=== PATIENT | female | born 1935 | race Hispanic/Latino ===

== ENCOUNTER 2019-07-21 06:24 | Day surgery (SDC) | payer MEDICARE ==
[2019-07-21] MEDS: SODIUM CHLORIDE 0.9% 500 ML 500 ML IV SCH ×2 (07:05→08:30)
[2019-07-21 07:14] LABS: Basophils # (Auto) 0.1 K/mm3 (0.0-0.1); Basophils % (Auto) 0.8 % (0.0-1.8); Eosinophils # (Auto) 0.1 K/mm3 (0.0-0.4); Eosinophils % (Auto) 1.5 % (0.0-4.3); Hematocrit 41.1 % (30.3-42.9); Hemoglobin 13.5 gm/dl (10.1-14.3); Lymphocytes # (Auto) 3.5 K/mm3 (1.2-5.4); Lymphocytes % (Auto) 39.5 % (13.4-35.0); Mean Corpuscular HGB Conc 33 % (30-34); Mean Corpuscular Volume 94 fl (79-97); Monocytes # (Auto) 0.7 K/mm3 (0.0-0.8); Monocytes % (Auto) 7.5 % (0.0-7.3); Platelet Count 266 K/mm3 (140-440); Red Blood Count 4.38 M/mm3 (3.65-5.03); Red Cell Distribution Width 13.6 % (13.2-15.2)
[2019-07-21 07:21] LABS: INR 0.95 (0.87-1.13)
[2019-07-21 07:23] LABS: Calcium 9.4 mg/dL (8.4-10.2)
[2019-07-21] MEDS ORDERED: fentaNYL 100 MCG/2 ML INJ ONE (08:11)
[2019-07-21] MEDS ORDERED: MIDAZOLAM 2 MG/2 ML INJ ONE (08:11)
[2019-07-21] MEDS ORDERED: HEPARIN/NS 5000 UNIT/500ML 1,000 ML IR ONE (08:11)
[2019-07-21] MEDS: LIDOCAINE (2%) 20 MG/1 ML VIAL 20 ML MDV INFILTRATI ONE ×2 (08:39→08:44)
[2019-07-21] MEDS: HEPARIN 10,000 UNITS/10 ML VIAL ONE ×2 (08:40→08:45)
[2019-07-21] MEDS: NITROGLYCERIN SYRINGE 3 ML ONE ×2 (08:40→08:45)
[2019-07-21] MEDS: VERAPAMIL 5 MG/2 ML INJ ONE ×2 (08:41→08:45)
--- NOTE | 2019-07-21 09:15 | Cardiac Catherization Report ---
LEFT HEART CATHETERIZATION ORDERING PHYSICIAN: Dr. Way. CLINICAL INFORMATION: This is an 83-year-old female who has been having shortness of breath with housework and with mildly abnormal stress test with apical ischemia, is here for left heart catheterization for persistent symptoms for suspected coronary artery disease. Procedure was done with moderate sedation started at 8:34, finished at 8:53, which is 90 minutes of moderate sedation. DESCRIPTION OF PROCEDURE: Left heart catheterization performed via the right radial artery, sterile technique, local anesthesia, 6-[place] radial sheath inserted. Left system, JL3.5 catheter. Left main is large and patent, bifurcates into large LAD, proximal and then bifurcates into dual LAD system and the true LAD intramyocardial becomes a small caliber vessel, patent. Then, the second diagonal is a small to medium caliber vessel that is patent with small diagonals that come across that are patent. Circumflex is a large caliber vessel and it is patent, bifurcates into medium caliber OM1, OM2 that are patent. RCA engaged with JR4, is a large dominant vessel, patent from proximally and distally. PDA, PLV are medium caliber vessel, patent. LV gram done in [place] and PA view shows normal LV function, EF 55-60%, LVEDP of 25-28 mmHg, LV is 170. Aortic is 170/77, no gradient across the aortic valve on pullback. 5-[place] catheters taken over guidewire, 6-[place] radial sheath was discontinued. Radial band applied. No hematoma, no bleeding. SUMMARY: 1. Normal coronaries, left main patent. 2. LAD, second LAD patent. Primary LAD is a small caliber and is patent. Circumflex is a large patent. OM1 and OM2 patent, RCA large, dominant, patent with normal LV function. 3. Continue risk factor modification. Discussed this with the primary dental scheduling coordinator and family in detail. JOB# [id number] CHRISSY/JODI
[2019-07-21] MEDS ORDERED: traMADol 50 MG TAB PO PRN (09:28)
--- NOTE | 2019-07-21 09:31 | Short Stay Summary ---
Short Stay Documentation Date of service: 07/21/19 - History H&P: obtained from office - Allergies and Medications Current Medications: Allergies Sulfa (Sulfonamide Antibiotics) Adverse Reaction (Unverified 07/21/19 06:25) Rash Home Medications Medication Instructions Recorded Confirmed Last Taken Type Citalopram Hydrobromide 20 mg PO DAILY 07/21/19 07/21/19 07/20/19 History [Citalopram HBr] 20 mg Gabapentin 3 cap PO BID 07/21/19 07/21/19 07/20/19 History 3 caps Levothyroxine Sodium [Tirosint-Fariba] 75 mcg PO DAILY 07/21/19 07/21/19 07/20/19 History 75 mcg Rivaroxaban [Xarelto] 20 mg PO DAILY 07/21/19 07/21/19 07/18/19 History 20 mg Triamterene/Hydrochlorothiazid 1 tab PO DAILY 07/21/19 07/21/19 07/20/19 History [Triamterene-Hctz 37.5-25 mg Cp] 1 tab Verapamil ER [Calan SR] 180 mg PO Q12H 07/21/19 07/21/19 07/20/19 History 180 mg Active Medications Sodium Chloride (Nacl 0.9% 500 Ml) 500 mls @ 50 mls/hr IV DIRECT LASHA Stop: 07/21/19 16:59 Last Admin: 07/21/19 08:30 Dose: 50 mls/hr Documented by: - Brief post op/procedure progress note Date of procedure: 07/21/19 Pre-op diagnosis: sob Post-op diagnosis: same Procedure: see report normal coronaries and normal lv function Anesthesia: local Estimated blood loss: none Pathology: none - Disposition Condition at discharge: Good Disposition: DC-01 TO HOME OR SELFCARE - Discharge Diagnoses (1) SOB (shortness of breath) Status: Chronic (2) Lupus anticoagulant disorder Status: Chronic (3) Hypertension Status: Chronic Qualifiers: Hypertension type: essential hypertension Qualified Code(s): I10 - Essential (primary) hypertension Short Stay Discharge Plan Activity: advance as tolerated Diet: regular, low fat Wound: keep clean and dry Follow up with: MONET ARGUELLO MD [Primary Care Provider] - 7 Days
[2019-07-21 12:21] VITALS: BP 118/50
--- NOTE | 2019-07-21 14:35 | Post Anesthesia Evaluation ---
- Post Anesthesia Evaluation Patient Participated: Yes Airway Patent: Yes Stable Respiratory Function: Yes Nausea/Vomiting: No Temp > 96.8F: Yes Pain Manageable: Yes Adequeate Hydration: Yes Anesthesia Complications: No Block Receding Appropriately: Not Applicable Patient on Ventilator: No
== END 2019-07-21 12:00 | disposition home or self-care (01) ==
LOC: CATHLABREC 06:24
PROVIDERS: ATTEND Internal Medicine
DX: R94.39 Abnormal result of other cardiovascular function study (principal); I10 Essential (primary) hypertension; E66.9 Obesity, unspecified; J35.1 Hypertrophy of tonsils; M17.0 Bilateral primary osteoarthritis of knee; G47.33 Obstructive sleep apnea (adult) (pediatric); D68.62 Lupus anticoagulant syndrome; Z86.711 Personal history of pulmonary embolism; Z88.2 Allergy status to sulfonamides; Z79.899 Other long term (current) drug therapy; Z90.49 Acquired absence of other specified parts of digestive tract; Z98.890 Other specified postprocedural states
CPT/HCPCS: 36415; 80048; 85025; 85610; 93005; 93010; 93458; 99156; C1894; J1644; J2250; J3010; J7040; Q9967